=== PATIENT | female | born 1970 | race Caucasian/White ===

== ENCOUNTER 2017-05-22 19:23 | Emergency (ER) | payer SELFPAY ==
--- NOTE | 2017-05-22 20:21 | RAD ---
TWO VIEWS CHEST 05/22/17 PROVIDED CLINICAL HISTORY: Cough. FINDINGS: Comparison is made with the study dated 06/29/06. The cardiac and mediastinal silhouette is within normal limits. The lungs appear clear. No pleural fl uid or pneumothorax apparent. IMPRESSION: No evidence for an acute cardiopulmonary process. POS: [facility]
== END 2017-05-22 22:21 | disposition home or self-care (01) ==
LOC: ERS 19:23
DX: J11.1 Influenza due to unidentified influenza virus with other respiratory manifestations (principal); F32.9 Major depressive disorder, single episode, unspecified; F17.210 Nicotine dependence, cigarettes, uncomplicated
CPT/HCPCS: 71020; 94640; J7620

== ENCOUNTER 2017-12-08 10:43 | Outpatient (CLI) | payer MEDICAID | END 2017-12-08 10:44 | disposition home or self-care (01) | LOC: BICRAD 10:43 | PROVIDERS: ATTEND Family Medicine | DX: M25.551 Pain in right hip (principal); M16.11 Unilateral primary osteoarthritis, right hip ==

== ENCOUNTER 2023-01-26 19:09 | Emergency (ER) | payer OTHER, SELFPAY | END 2023-01-26 20:30 | disposition home or self-care (01) | LOC: ERS 19:09 | DX: S70.01XA Contusion of right hip, initial encounter (principal); S43.401A Unspecified sprain of right shoulder joint, initial encounter; F17.210 Nicotine dependence, cigarettes, uncomplicated; V18.0XXA Pedal cycle driver injured in noncollision transport accident in nontraffic accident, initial encounter ==

== ENCOUNTER 2023-02-09 19:34 | Emergency (ER) | payer SELFPAY ==
[2023-02-09] MEDS ORDERED: Morphine 4 MG/ML VIAL ONE (21:04)
[2023-02-09] MEDS ORDERED: Ondansetron PF 4 MG/2 ML Vial ONE (21:04)
[2023-02-09] MEDS ORDERED: PROPOFOL 20 ML ONE ×2 (22:30→23:54)
[2023-02-10] MEDS ORDERED: HYDROcodone/Acetaminophen 5/325 mg Tablet ONE (00:31)
== END 2023-02-10 00:34 | disposition home or self-care (01) ==
LOC: ERS 19:34
DX: S00.81XA Abrasion of other part of head, initial encounter (principal); S43.014A Anterior dislocation of right humerus, initial encounter; S70.02XA Contusion of left hip, initial encounter; V00.141A Fall from scooter (nonmotorized), initial encounter; F17.210 Nicotine dependence, cigarettes, uncomplicated
CPT/HCPCS: 23650; 70450; 71045; 96374; 96375; J2270; J2405; J2704

== ENCOUNTER 2023-03-08 09:21 | Emergency (ER) | payer BC ==
[2023-03-08] MEDS ORDERED: fentaNYL 50 mcg/mL 1 mL Vial ONE (09:54)
[2023-03-08] MEDS ORDERED: PROPOFOL 20 ML ONE (10:20)
== END 2023-03-08 13:17 | disposition home or self-care (01) ==
LOC: ERS 09:21
DX: S43.015A Anterior dislocation of left humerus, initial encounter (principal); F17.210 Nicotine dependence, cigarettes, uncomplicated; W05.1XXA Fall from non-moving nonmotorized scooter, initial encounter
CPT/HCPCS: 23650; 96374; J2704; J3010

== ENCOUNTER 2023-03-30 10:00 | Emergency (ER) | payer BC ==
[2023-03-30] MEDS ORDERED: fentaNYL 50 mcg/mL 1 mL Vial ONE (10:34)
== END 2023-03-30 11:40 | disposition home or self-care (01) ==
LOC: ERS 10:00
DX: S43.015A Anterior dislocation of left humerus, initial encounter (principal); S42.292A Other displaced fracture of upper end of left humerus, initial encounter for closed fracture; F17.210 Nicotine dependence, cigarettes, uncomplicated; X50.9XXA Other and unspecified overexertion or strenuous movements or postures, initial encounter
CPT/HCPCS: 23650; 96374; J3010